=== PATIENT | male | born 1945 | race Caucasian/White ===

== ENCOUNTER 2020-11-09 13:08 | Day surgery (SDC) | payer MEDICARE, OTHER ==
[~2020-11-09] VITALS: Ht 170.2 cm; Wt 74.9 kg
[2020-11-09 15:14] LABS: BASOPHIL 0.5 % (0-2); EOSINOPHIL 1.8 % (0-7); HCT 45.5 % (42.0-52.0); HGB 14.9 g/dl (13.2-18.0); LYMPHOCYTE 14.6 % (15-48); MCH 30.5 pg (25.0-31.0); MCHC 32.7 g/dL (32.0-36.0); MONOCYTE 10.6 % (0-12); MPV 9.4 fL (6.0-9.5); NRBC 0; PLT 250 K/uL (150-400); RBC 4.89 M/uL (4.70-6.00); RDW 14.4 % (11.5-14.0); WBC 8.7 K/uL (4.0-10.5)
[2020-11-09 15:33] LABS: INR 1.09 (0.9-1.2); PROTHROMBIN TIME 13.4 SECONDS (11.4-13.6); PTT 29.6 SECONDS (22.2-34.7)
[2020-11-09 15:51] LABS: ALBUMIN 3.6 g/dL (3.4-5.0); BILIRUBIN - TOTAL 0.5 mg/dL (0.2-1.0); CREATININE 1.07 mg/dL (0.67-1.17); GLOBULIN (CALCULATION) 4.7 g/dL; POTASSIUM 3.9 mmol/L (3.5-5.1); TOTAL PROTEIN 8.3 g/dL (6.4-8.2)
== END 2020-11-09 18:45 | disposition home or self-care (01) ==
LOC: FER 13:08 → FAS 13:08 → FOD 17:27 → FMS 17:27 → FOD 18:45 → FMS 18:45
PROVIDERS: Internal Medicine
DX: T18.128A Food in esophagus causing other injury, initial encounter (principal); K29.70 Gastritis, unspecified, without bleeding; K22.2 Esophageal obstruction; J44.9 Chronic obstructive pulmonary disease, unspecified; F41.9 Anxiety disorder, unspecified; F32.9 Major depressive disorder, single episode, unspecified; K21.9 Gastro-esophageal reflux disease without esophagitis; I25.2 Old myocardial infarction; E78.5 Hyperlipidemia, unspecified; I10 Essential (primary) hypertension; L40.9 Psoriasis, unspecified; G47.00 Insomnia, unspecified; F17.210 Nicotine dependence, cigarettes, uncomplicated; Z79.02 Long term (current) use of antithrombotics/antiplatelets; Z79.82 Long term (current) use of aspirin; Z79.899 Other long term (current) drug therapy; Z20.822 Contact with and (suspected) exposure to COVID-19
CPT/HCPCS: 36415; 80053; 85025; 85610; 85730; 93005; J0360; J1610; J2405; J2704; J7030; J7120; U0002